=== PATIENT | female | born 1930 | race Caucasian/White ===

== ENCOUNTER 2016-09-08 15:17 | Outpatient (CLI) | payer MEDICARE, OTHER | END 2016-09-08 15:18 | disposition home or self-care (01) | DX: N18.3 Chronic kidney disease, stage 3 (moderate) (principal); I48.91 Unspecified atrial fibrillation; I12.9 Hypertensive chronic kidney disease with stage 1 through stage 4 chronic kidney disease, or unspecified chronic kidney disease ==

== ENCOUNTER 2016-09-22 13:20 | Outpatient (CLI) | payer MEDICARE, OTHER | END 2016-09-22 13:21 | disposition home or self-care (01) | DX: N39.0 Urinary tract infection, site not specified (principal) ==

== ENCOUNTER 2016-09-26 17:58 | Outpatient (CLI) | payer MEDICARE, OTHER | END 2016-09-26 17:59 | disposition critical access hospital (66) | DX: R11.2 Nausea with vomiting, unspecified (principal); R53.1 Weakness | CPT/HCPCS: A0425; A0429 ==

== ENCOUNTER 2016-09-26 18:24 | Inpatient (IN) | payer MEDICARE, OTHER ==
[2016-09-26] MEDS ORDERED: SODIUM CHLORIDE 0.9% 1,000 ML IV ONE (18:33)
[2016-09-26] MEDS ORDERED: ONDANSETRON 4 MG/2 ML VIAL ONE (18:34)
[2016-09-26] MEDS ORDERED: ONDANSETRON 4 MG/2 ML VIAL IVP STA (18:35)
[2016-09-26] MEDS ORDERED: cefTRIAXone 1 GM in SODIUM CHLORIDE 0.9% MINIBAG 100 ML IV STA (19:56)
[2016-09-26] MEDS ORDERED: METOCLOPRAMIDE 10 MG/2 ML VIAL IVP STA (19:56)
[2016-09-26] MEDS ORDERED: METOCLOPRAMIDE 10 MG/2 ML VIAL IVP ONE (20:07)
[2016-09-26] MEDS ORDERED: cefTRIAXone 1 GM VIAL ONE (20:07)
[2016-09-26] MEDS ORDERED: PROCHLORPERAZINE 10 MG/2 ML VIAL IVP PRN (20:16)
[2016-09-26] MEDS ORDERED: PROMETHAZINE 25 MG/1 ML VIAL IM PRN (20:16)
[2016-09-26] MEDS ORDERED: diphenhydrAMINE INJ 50 MG/ML VIAL IM PRN (20:19)
[2016-09-26] MEDS ORDERED: DOCUSATE SODIUM 250 MG CAPSULE PO PRN ×2 (20:20→21:54)
[2016-09-26] MEDS ORDERED: METOPROLOL TARTRATE 25 MG TABLET PO SCH (21:00)
[2016-09-26] MEDS: ACETAMINOPHEN 325 MG TABLET PO PRN (21:24)
[2016-09-26] MEDS: SODIUM CHLORIDE FLUSH 0.9% 10 ML SYRINGE IVP SCH (21:27)
[2016-09-26] MEDS: SODIUM CHLORIDE 0.9% 1,000 ML IV SCH (21:27)
[2016-09-26] MEDS: FLUTICASONE NASAL SPRAY NAS SCH (21:27)
[2016-09-26] MEDS: FAMOTIDINE 20 MG/50 ML 50 ML IV SCH (21:27)
[2016-09-26] MEDS: ONDANSETRON 4 MG/2 ML VIAL IVP PRN (22:03)
[2016-09-26] MEDS: SODIUM CHLORIDE FLUSH 0.9% 10 ML SYRINGE IVP PRN (22:04)
[2016-09-27] MEDS: HYDROcod/ACETAM 5/325 MG TABLET PO PRN ×3 (00:39→17:27)
[2016-09-27] MEDS ORDERED: SODIUM CHLORIDE 0.9% 1,000 ML IV ONE (08:30)
[2016-09-27] MEDS: SODIUM CHLORIDE 0.9% 1,000 ML IV ONE ×3 (08:34→09:33)
[2016-09-27] MEDS: cefTRIAXone 2 GM in SODIUM CHLORIDE 0.9% MINIBAG 100 ML IV SCH (09:22)
[2016-09-27] MEDS: SACCHAROMYCES BOULARDII 250 MG CAPSULE PO SCH ×2 (09:32→17:27)
[2016-09-27] MEDS: FERROUS SULFATE 325 MG TABLET PO SCH (09:32)
[2016-09-27] MEDS: SODIUM CHLORIDE FLUSH 0.9% 10 ML SYRINGE IVP SCH ×3 (09:34→21:16)
[2016-09-27] MEDS: FLUTICASONE NASAL SPRAY NAS SCH ×2 (09:34→21:10)
[2016-09-27] MEDS: METOPROLOL TARTRATE 25 MG TABLET PO SCH ×2 (09:35→21:16)
[2016-09-27] MEDS: POLYETHYLENE GLYCOL 3350 17 GM PACKET PO SCH (09:36)
[2016-09-27] MEDS: ASPIRIN EC 81 MG TABLET PO SCH (09:58)
[2016-09-27] MEDS ORDERED: MIN OIL/DIMETHICON/COCONUT OIL 92 GM TUBE TOP ONE (12:27)
[2016-09-27] MEDS ORDERED: MAGNESIUM SULFATE 2 GRAM 50 ML IV ONE (12:30)
[2016-09-27] MEDS: SODIUM CHLORIDE 0.9% 1,000 ML IV SCH ×3 (12:32→19:24)
[2016-09-27] MEDS ORDERED: WARFARIN 2.5 MG TABLET PO SCH (14:00)
[2016-09-27] MEDS: MORPHINE 2 MG/ML SYRINGE IVP PRN (19:28)
[2016-09-27] MEDS: FAMOTIDINE 20 MG/50 ML 50 ML IV SCH (21:11)
[2016-09-28] MEDS: HYDROcod/ACETAM 5/325 MG TABLET PO PRN ×4 (01:20→23:42)
[2016-09-28] MEDS: SODIUM CHLORIDE 0.9% 1,000 ML IV SCH ×4 (04:22→21:54)
[2016-09-28] MEDS: SODIUM CHLORIDE FLUSH 0.9% 10 ML SYRINGE IVP SCH ×3 (06:56→21:05)
[2016-09-28] MEDS: METOPROLOL TARTRATE 25 MG TABLET PO SCH ×2 (08:50→21:04)
[2016-09-28] MEDS: PANTOPRAZOLE 40 MG TABLET PO SCH (08:50)
[2016-09-28] MEDS: SACCHAROMYCES BOULARDII 250 MG CAPSULE PO SCH ×2 (08:50→17:03)
[2016-09-28] MEDS: POLYETHYLENE GLYCOL 3350 17 GM PACKET PO SCH (08:51)
[2016-09-28] MEDS: cefTRIAXone 2 GM in SODIUM CHLORIDE 0.9% MINIBAG 100 ML IV SCH (08:51)
[2016-09-28] MEDS: FERROUS SULFATE 325 MG TABLET PO SCH (08:58)
[2016-09-28] MEDS: ASPIRIN EC 81 MG TABLET PO SCH (08:58)
[2016-09-28] MEDS: FLUTICASONE NASAL SPRAY NAS SCH ×2 (08:58→21:09)
[2016-09-28] MEDS: METOPROLOL 5 MG/5 ML VIAL IVP SCH ×2 (09:09→15:16)
[2016-09-28] MEDS ORDERED: DIGOXIN 500 MCG/2 ML AMP IVP ONE ×2 (10:00→10:15)
[2016-09-28] MEDS ORDERED: WARFARIN 2.5 MG TABLET PO SCH (17:00)
[2016-09-29] MEDS: MORPHINE 2 MG/ML SYRINGE IVP PRN (02:10)
[2016-09-29] MEDS: PANTOPRAZOLE 40 MG TABLET PO SCH (06:57)
[2016-09-29] MEDS: SODIUM CHLORIDE FLUSH 0.9% 10 ML SYRINGE IVP SCH ×3 (06:58→22:09)
[2016-09-29] MEDS: cefTRIAXone 2 GM in SODIUM CHLORIDE 0.9% MINIBAG 100 ML IV SCH (09:31)
[2016-09-29] MEDS: FLUTICASONE NASAL SPRAY NAS SCH ×2 (09:38→22:01)
[2016-09-29] MEDS: METOPROLOL TARTRATE 25 MG TABLET PO SCH ×2 (09:48→22:07)
[2016-09-29] MEDS: FERROUS SULFATE 325 MG TABLET PO SCH (09:49)
[2016-09-29] MEDS: ASPIRIN EC 81 MG TABLET PO SCH (09:49)
[2016-09-29] MEDS: POLYETHYLENE GLYCOL 3350 17 GM PACKET PO SCH ×2 (09:52→16:35)
[2016-09-29] MEDS: SODIUM CHLORIDE FLUSH 0.9% 10 ML SYRINGE IVP PRN (10:10)
[2016-09-29] MEDS ORDERED: MIN OIL/DIMETHICON/COCONUT OIL 92 GM TUBE TOP PRN (11:48)
[2016-09-29] MEDS: SACCHAROMYCES BOULARDII 250 MG CAPSULE PO SCH ×2 (12:08→16:19)
[2016-09-29] MEDS ORDERED: WARFARIN 5 MG TABLET PO SCH (14:00)
[2016-09-29] MEDS: HYDROcod/ACETAM 5/325 MG TABLET PO PRN ×2 (14:18→19:17)
[2016-09-29] MEDS ORDERED: VANCOMYCIN INJ 1 GM in SODIUM CHLORIDE 0.9% 250 ML IV SCH ×2 (16:00→17:00)
[2016-09-29] MEDS ORDERED: PETROLATUM TOP PRN (16:00)
[2016-09-29] MEDS ORDERED: ZINC OXIDE TOP PRN (16:00)
[2016-09-29] MEDS: WARFARIN 5 MG TABLET PO SCH (16:15)
[2016-09-29] MEDS ORDERED: VANCOMYCIN PER PHARMACY 1,000 GM in SODIUM CHLORIDE 0.9% 250 ML IV SCH (17:00)
[2016-09-29] MEDS: AMPICILLIN/SULBACTAM 3 GM in SODIUM CHLORIDE 0.9% MINIBAG 100 ML IV SCH (22:01)
[2016-09-30] MEDS: AMPICILLIN/SULBACTAM 3 GM in SODIUM CHLORIDE 0.9% MINIBAG 100 ML IV SCH ×3 (02:29→13:39)
[2016-09-30] MEDS: SODIUM CHLORIDE FLUSH 0.9% 10 ML SYRINGE IVP PRN (02:29)
[2016-09-30] MEDS: HYDROcod/ACETAM 5/325 MG TABLET PO PRN ×2 (05:45→13:45)
[2016-09-30] MEDS: SODIUM CHLORIDE FLUSH 0.9% 10 ML SYRINGE IVP SCH ×4 (06:47→13:45)
[2016-09-30] MEDS: PANTOPRAZOLE 40 MG TABLET PO SCH (06:47)
[2016-09-30] MEDS: ACETAMINOPHEN 325 MG TABLET PO PRN (06:56)
[2016-09-30] MEDS: SACCHAROMYCES BOULARDII 250 MG CAPSULE PO SCH (08:45)
[2016-09-30] MEDS ORDERED: DOCUSATE SODIUM 250 MG CAPSULE PO SCH (09:00)
[2016-09-30] MEDS ORDERED: SENNA 8.6 MG TABLET PO SCH (09:00)
[2016-09-30] MEDS: FERROUS SULFATE 325 MG TABLET PO SCH (09:07)
[2016-09-30] MEDS: ASPIRIN EC 81 MG TABLET PO SCH (09:09)
[2016-09-30] MEDS: METOPROLOL TARTRATE 25 MG TABLET PO SCH (09:09)
[2016-09-30] MEDS: POLYETHYLENE GLYCOL 3350 17 GM PACKET PO SCH (09:18)
[2016-09-30] MEDS: FLUTICASONE NASAL SPRAY NAS SCH (09:33)
[2016-09-30] MEDS: ONDANSETRON 4 MG/2 ML VIAL IVP PRN (12:47)
[2016-09-30] MEDS: WARFARIN 5 MG TABLET PO SCH (13:39)
== END 2016-09-30 15:32 | disposition home or self-care (01) | DRG 698 ==
DX: T83.518A Infection and inflammatory reaction due to other urinary catheter, initial encounter (principal); A41.9 Sepsis, unspecified organism; N17.9 Acute kidney failure, unspecified; T36.95XA Adverse effect of unspecified systemic antibiotic, initial encounter; Y92.238 Other place in hospital as the place of occurrence of the external cause; I69.954 Hemiplegia and hemiparesis following unspecified cerebrovascular disease affecting left non-dominant side; N18.9 Chronic kidney disease, unspecified; R11.2 Nausea with vomiting, unspecified; I48.2 Chronic atrial fibrillation; N13.70 Vesicoureteral-reflux, unspecified; K21.9 Gastro-esophageal reflux disease without esophagitis; H35.30 Unspecified macular degeneration; R74.0 Nonspecific elevation of levels of transaminase and lactic acid dehydrogenase [LDH]; I13.10 Hypertensive heart and chronic kidney disease without heart failure, with stage 1 through stage 4 chronic kidney disease, or unspecified chronic kidney disease; H91.90 Unspecified hearing loss, unspecified ear; N18.3 Chronic kidney disease, stage 3 (moderate); Z95.5 Presence of coronary angioplasty implant and graft; I25.10 Atherosclerotic heart disease of native coronary artery without angina pectoris; Z86.73 Personal history of transient ischemic attack (TIA), and cerebral infarction without residual deficits; Z86.718 Personal history of other venous thrombosis and embolism; Z86.711 Personal history of pulmonary embolism; Z79.01 Long term (current) use of anticoagulants; Z87.440 Personal history of urinary (tract) infections; I69.998 Other sequelae following unspecified cerebrovascular disease; M21.372 Foot drop, left foot; Z96.649 Presence of unspecified artificial hip joint; J45.909 Unspecified asthma, uncomplicated; D50.9 Iron deficiency anemia, unspecified; G89.29 Other chronic pain; M19.90 Unspecified osteoarthritis, unspecified site; M54.9 Dorsalgia, unspecified; T37.8X5A Adverse effect of other specified systemic anti-infectives and antiparasitics, initial encounter; Y92.531 Health care provider office as the place of occurrence of the external cause; Z22.322 Carrier or suspected carrier of Methicillin resistant Staphylococcus aureus; Z79.82 Long term (current) use of aspirin; Z79.899 Other long term (current) drug therapy

== ENCOUNTER 2016-10-18 08:00 | Outpatient (CLI) | payer MEDICARE, OTHER | END 2016-10-18 08:01 | disposition home or self-care (01) | DX: N39.0 Urinary tract infection, site not specified (principal) ==

== ENCOUNTER 2016-10-31 11:00 | Outpatient (CLI) | payer MEDICARE, OTHER | END 2016-10-31 11:01 | disposition home or self-care (01) | DX: N39.0 Urinary tract infection, site not specified (principal) ==

== ENCOUNTER 2016-11-02 14:24 | Outpatient (CLI) | payer MEDICARE, OTHER | END 2016-11-02 23:59 | disposition critical access hospital (66) | DX: R53.1 Weakness (principal); R11.2 Nausea with vomiting, unspecified; R68.83 Chills (without fever); R19.7 Diarrhea, unspecified | CPT/HCPCS: A0425; A0427 ==

== ENCOUNTER 2016-11-02 14:49 | Inpatient (IN) | payer MEDICARE, OTHER ==
[2016-11-02] MEDS ORDERED: SODIUM CHLORIDE 0.9% 500 ML IV ONE (15:15)
[2016-11-02] MEDS ORDERED: ONDANSETRON 4 MG/2 ML VIAL IVP STA (15:52)
[2016-11-02] MEDS ORDERED: ONDANSETRON 4 MG/2 ML VIAL ONE (16:01)
[2016-11-02] MEDS ORDERED: cefTRIAXone 1 GM in SODIUM CHLORIDE 0.9% MINIBAG 100 ML IV STA (16:36)
[2016-11-02] MEDS ORDERED: cefTRIAXone 1 GM VIAL ONE (16:41)
[2016-11-02] MEDS ORDERED: SODIUM CHLORIDE FLUSH 0.9% 10 ML SYRINGE IVP PRN (18:01)
[2016-11-02] MEDS ORDERED: VANCOMYCIN PER PHARMACY 1,000 GM in SODIUM CHLORIDE 0.9% 250 ML IV SCH (19:00)
[2016-11-02] MEDS ORDERED: VANCOMYCIN INJ 1 GM in SODIUM CHLORIDE 0.9% 250 ML IV SCH (19:00)
[2016-11-02] MEDS: SODIUM CHLORIDE FLUSH 0.9% 10 ML SYRINGE IVP SCH (19:59)
[2016-11-02] MEDS: SODIUM CHLORIDE 0.9% 1,000 ML IV SCH (19:59)
[2016-11-02] MEDS: CHOLESTYRAMINE 4 GM PACKET PO SCH (21:49)
[2016-11-02] MEDS ORDERED: WARFARIN 2.5 MG TABLET PO SCH (23:45)
[2016-11-03] MEDS: ACETAMINOPHEN 325 MG TABLET PO PRN ×3 (01:26→13:11)
[2016-11-03] MEDS ORDERED: MICONAZOLE NITRATE TOP PRN (02:28)
[2016-11-03] MEDS ORDERED: MIN OIL/DIMETHICON/COCONUT OIL 92 GM TUBE TOP ONE (02:48)
[2016-11-03] MEDS: ZINC OXIDE 20% OINT 28.35 GM TUBE TOP PRN (03:25)
[2016-11-03] MEDS: SODIUM CHLORIDE 0.9% 1,000 ML IV SCH ×2 (06:38→20:00)
[2016-11-03] MEDS: PANTOPRAZOLE 40 MG TABLET PO SCH (06:39)
[2016-11-03] MEDS: SODIUM CHLORIDE FLUSH 0.9% 10 ML SYRINGE IVP SCH ×3 (06:57→20:00)
[2016-11-03] MEDS ORDERED: POLYETHYLENE GLYCOL 3350 17 GM PACKET PO SCH (09:00)
[2016-11-03] MEDS ORDERED: MICONAZOLE NITRATE TOP SCH (09:00)
[2016-11-03] MEDS ORDERED: ENOXAPARIN 30 MG/0.3 ML SYRINGE SUBQ SCH (09:00)
[2016-11-03] MEDS ORDERED: LACTULOSE 10 GM /15 ML UDC PO SCH (09:00)
[2016-11-03] MEDS ORDERED: ZINC OXIDE 20% OINT 28.35 GM TUBE TOP SCH (09:00)
[2016-11-03] MEDS: LOSARTAN 50 MG TABLET PO SCH (09:07)
[2016-11-03] MEDS: CHOLESTYRAMINE 4 GM PACKET PO SCH ×2 (09:07→22:27)
[2016-11-03] MEDS: FLUCONAZOLE 100 MG TABLET PO SCH (12:15)
[2016-11-03] MEDS: WARFARIN 5 MG TABLET PO SCH (12:15)
[2016-11-03] MEDS: IMIPENEM/CILASTATIN 250 MG in SODIUM CHLORIDE 0.9% MINIBAG 100 ML IV SCH ×3 (12:15→22:34)
[2016-11-03] MEDS ORDERED: cefTRIAXone 1 GM in SODIUM CHLORIDE 0.9% MINIBAG 100 ML IV SCH (15:00)
[2016-11-03] MEDS ORDERED: VANCOMYCIN INJ 0.75 GM in SODIUM CHLORIDE 0.9% 250 ML IV SCH (17:00)
[2016-11-03] MEDS: SACCHAROMYCES BOULARDII 250 MG CAPSULE PO SCH (17:24)
[2016-11-03] MEDS: HYDROcod/ACETAM 5/325 MG TABLET PO PRN (17:24)
[2016-11-03] MEDS: MIN OIL/DIMETHICON/COCONUT OIL 92 GM TUBE TOP PRN (19:59)
[2016-11-04] MEDS: HYDROcod/ACETAM 5/325 MG TABLET PO PRN ×6 (00:17→22:48)
[2016-11-04] MEDS: IMIPENEM/CILASTATIN 250 MG in SODIUM CHLORIDE 0.9% MINIBAG 100 ML IV SCH ×4 (00:24→17:28)
[2016-11-04] MEDS: ACETAMINOPHEN 325 MG TABLET PO PRN (02:50)
[2016-11-04] MEDS: METOPROLOL SUCCINATE 25 MG TABLET PO SCH ×2 (04:10→21:28)
[2016-11-04] MEDS: ONDANSETRON 4 MG/2 ML VIAL IVP PRN (04:10)
[2016-11-04] MEDS ORDERED: HYDROcod/ACETAM 5/325 MG TABLET PO PRN (04:21)
[2016-11-04] MEDS ORDERED: HYDROmorphone 1 MG/ML SYRINGE IVP PRN ×2 (04:26→04:53)
[2016-11-04] MEDS ORDERED: MORPHINE 2 MG/ML SYRINGE IVP PRN ×2 (04:30→04:52)
[2016-11-04] MEDS: SODIUM CHLORIDE 0.9% 1,000 ML IV SCH ×3 (05:19→23:28)
[2016-11-04] MEDS: PANTOPRAZOLE 40 MG TABLET PO SCH (06:22)
[2016-11-04] MEDS: SODIUM CHLORIDE FLUSH 0.9% 10 ML SYRINGE IVP SCH ×3 (07:11→21:29)
[2016-11-04] MEDS: FLUCONAZOLE 100 MG TABLET PO SCH (09:13)
[2016-11-04] MEDS: FERROUS SULFATE 325 MG TABLET PO SCH (09:13)
[2016-11-04] MEDS: CHOLESTYRAMINE 4 GM PACKET PO SCH ×2 (09:13→21:16)
[2016-11-04] MEDS: ASPIRIN EC 81 MG TABLET PO SCH (09:13)
[2016-11-04] MEDS: SACCHAROMYCES BOULARDII 250 MG CAPSULE PO SCH ×2 (09:13→17:28)
[2016-11-04] MEDS: LOSARTAN 50 MG TABLET PO SCH (09:18)
[2016-11-04] MEDS: WARFARIN 5 MG TABLET PO SCH (13:42)
[2016-11-04] MEDS ORDERED: methylPREDNISolone SUCCINATE 125 MG/2 ML VIAL IVP SCH (14:45)
[2016-11-04] MEDS: MIN OIL/DIMETHICON/COCONUT OIL 92 GM TUBE TOP PRN (17:31)
[2016-11-04] MEDS ORDERED: methylPREDNISolone SUCCINATE 125 MG/2 ML VIAL IVP ONE (18:43)
[2016-11-05] MEDS: IMIPENEM/CILASTATIN 250 MG in SODIUM CHLORIDE 0.9% MINIBAG 100 ML IV SCH ×4 (00:02→17:52)
[2016-11-05] MEDS: HYDROcod/ACETAM 5/325 MG TABLET PO PRN ×4 (04:56→17:51)
[2016-11-05] MEDS: PANTOPRAZOLE 40 MG TABLET PO SCH (06:11)
[2016-11-05] MEDS: SODIUM CHLORIDE FLUSH 0.9% 10 ML SYRINGE IVP SCH ×3 (07:19→23:43)
[2016-11-05] MEDS: FERROUS SULFATE 325 MG TABLET PO SCH (08:45)
[2016-11-05] MEDS: CHOLESTYRAMINE 4 GM PACKET PO SCH ×2 (08:45→21:18)
[2016-11-05] MEDS: ASPIRIN EC 81 MG TABLET PO SCH (08:45)
[2016-11-05] MEDS: SACCHAROMYCES BOULARDII 250 MG CAPSULE PO SCH ×2 (08:45→17:04)
[2016-11-05] MEDS: METOPROLOL SUCCINATE 25 MG TABLET PO SCH ×2 (08:46→21:18)
[2016-11-05] MEDS: FLUCONAZOLE 100 MG TABLET PO SCH (08:46)
[2016-11-05] MEDS: SODIUM CHLORIDE 0.9% 1,000 ML IV SCH ×2 (08:48→19:46)
[2016-11-05] MEDS: LOSARTAN 50 MG TABLET PO SCH (08:48)
[2016-11-05] MEDS: methylPREDNISolone SUCCINATE 40 MG/ML VIAL IVP SCH ×2 (13:56→23:43)
[2016-11-05] MEDS: MIN OIL/DIMETHICON/COCONUT OIL 92 GM TUBE TOP PRN (13:56)
[2016-11-05] MEDS: ZINC OXIDE 20% OINT 28.35 GM TUBE TOP PRN (21:44)
[2016-11-06] MEDS: IMIPENEM/CILASTATIN 250 MG in SODIUM CHLORIDE 0.9% MINIBAG 100 ML IV SCH ×4 (00:41→17:46)
[2016-11-06] MEDS: HYDROcod/ACETAM 5/325 MG TABLET PO PRN ×5 (00:56→22:04)
[2016-11-06] MEDS: SODIUM CHLORIDE 0.9% 1,000 ML IV SCH ×2 (06:00→08:48)
[2016-11-06] MEDS: SODIUM CHLORIDE FLUSH 0.9% 10 ML SYRINGE IVP SCH ×3 (06:05→21:52)
[2016-11-06] MEDS: methylPREDNISolone SUCCINATE 40 MG/ML VIAL IVP SCH ×3 (06:06→21:52)
[2016-11-06] MEDS: PANTOPRAZOLE 40 MG TABLET PO SCH (06:06)
[2016-11-06] MEDS: SACCHAROMYCES BOULARDII 250 MG CAPSULE PO SCH ×2 (08:48→17:38)
[2016-11-06] MEDS: LOSARTAN 50 MG TABLET PO SCH (08:48)
[2016-11-06] MEDS: CHOLESTYRAMINE 4 GM PACKET PO SCH ×2 (08:48→21:52)
[2016-11-06] MEDS: FERROUS SULFATE 325 MG TABLET PO SCH (08:48)
[2016-11-06] MEDS: ASPIRIN EC 81 MG TABLET PO SCH (08:48)
[2016-11-06] MEDS ORDERED: MUPIROCIN 2% OINT 1 GM NAS SCH (09:00)
[2016-11-06] MEDS ORDERED: METHENAMINE MANDELATE 500 MG PO SCH (09:00)
[2016-11-06] MEDS ORDERED: MUPIROCIN 2% OINT 22 GM TUBE TOP SCH (10:00)
[2016-11-06] MEDS: MUPIROCIN 2% OINT 22 GM TUBE TOP SCH ×2 (10:16→21:52)
[2016-11-06] MEDS: MUPIROCIN 2% OINT 1 GM NAS SCH ×2 (10:17→21:52)
[2016-11-07] MEDS: IMIPENEM/CILASTATIN 250 MG in SODIUM CHLORIDE 0.9% MINIBAG 100 ML IV SCH ×3 (00:03→12:35)
[2016-11-07] MEDS: HYDROcod/ACETAM 5/325 MG TABLET PO PRN ×4 (01:46→21:55)
[2016-11-07] MEDS: SODIUM CHLORIDE 0.9% 1,000 ML IV SCH ×2 (03:19→23:51)
[2016-11-07] MEDS: PANTOPRAZOLE 40 MG TABLET PO SCH (06:04)
[2016-11-07] MEDS: SODIUM CHLORIDE FLUSH 0.9% 10 ML SYRINGE IVP SCH ×3 (06:05→21:52)
[2016-11-07] MEDS: CHOLESTYRAMINE 4 GM PACKET PO SCH ×2 (09:17→21:55)
[2016-11-07] MEDS: FERROUS SULFATE 325 MG TABLET PO SCH (09:17)
[2016-11-07] MEDS: ASPIRIN EC 81 MG TABLET PO SCH (09:17)
[2016-11-07] MEDS: SACCHAROMYCES BOULARDII 250 MG CAPSULE PO SCH ×2 (09:17→17:10)
[2016-11-07] MEDS: MUPIROCIN 2% OINT 22 GM TUBE TOP SCH ×2 (09:18→21:53)
[2016-11-07] MEDS: methylPREDNISolone SUCCINATE 40 MG/ML VIAL IVP SCH ×2 (09:18→21:51)
[2016-11-07] MEDS: LOSARTAN 50 MG TABLET PO SCH (09:20)
[2016-11-07] MEDS: MUPIROCIN 2% OINT 1 GM NAS SCH ×2 (09:31→21:56)
[2016-11-07] MEDS: NITROFURANTOIN MACRO 100 MG CAPSULE PO SCH ×2 (14:29→21:51)
[2016-11-08] MEDS: SODIUM CHLORIDE FLUSH 0.9% 10 ML SYRINGE IVP SCH ×3 (05:45→22:13)
[2016-11-08] MEDS: PANTOPRAZOLE 40 MG TABLET PO SCH (07:01)
[2016-11-08] MEDS: HYDROcod/ACETAM 5/325 MG TABLET PO PRN ×4 (07:01→22:14)
[2016-11-08] MEDS: NITROFURANTOIN MACRO 100 MG CAPSULE PO SCH ×2 (08:01→22:14)
[2016-11-08] MEDS: SACCHAROMYCES BOULARDII 250 MG CAPSULE PO SCH ×2 (08:01→17:58)
[2016-11-08] MEDS: CHOLESTYRAMINE 4 GM PACKET PO SCH ×2 (08:01→22:11)
[2016-11-08] MEDS: LOSARTAN 50 MG TABLET PO SCH (08:02)
[2016-11-08] MEDS: MUPIROCIN 2% OINT 1 GM NAS SCH ×2 (08:02→22:13)
[2016-11-08] MEDS: FERROUS SULFATE 325 MG TABLET PO SCH (08:02)
[2016-11-08] MEDS: methylPREDNISolone SUCCINATE 40 MG/ML VIAL IVP SCH ×2 (08:02→22:13)
[2016-11-08] MEDS: ASPIRIN EC 81 MG TABLET PO SCH (08:02)
[2016-11-08] MEDS: MUPIROCIN 2% OINT 22 GM TUBE TOP SCH ×2 (08:03→22:13)
[2016-11-08] MEDS: METOPROLOL SUCCINATE 25 MG TABLET PO SCH ×2 (10:28→17:59)
[2016-11-08] MEDS: SODIUM CHLORIDE 0.9% 1,000 ML IV SCH (19:34)
[2016-11-09] MEDS: HYDROcod/ACETAM 5/325 MG TABLET PO PRN ×5 (02:45→20:10)
[2016-11-09] MEDS: PANTOPRAZOLE 40 MG TABLET PO SCH (06:05)
[2016-11-09] MEDS: SODIUM CHLORIDE FLUSH 0.9% 10 ML SYRINGE IVP SCH ×3 (06:06→21:28)
[2016-11-09] MEDS: LOSARTAN 50 MG TABLET PO SCH (06:20)
[2016-11-09] MEDS: ASPIRIN EC 81 MG TABLET PO SCH (08:28)
[2016-11-09] MEDS: SACCHAROMYCES BOULARDII 250 MG CAPSULE PO SCH ×2 (08:28→17:24)
[2016-11-09] MEDS: methylPREDNISolone SUCCINATE 40 MG/ML VIAL IVP SCH (08:28)
[2016-11-09] MEDS: FERROUS SULFATE 325 MG TABLET PO SCH (08:28)
[2016-11-09] MEDS: METOPROLOL SUCCINATE 25 MG TABLET PO SCH ×2 (08:29→21:28)
[2016-11-09] MEDS: NITROFURANTOIN MACRO 100 MG CAPSULE PO SCH ×2 (08:30→21:28)
[2016-11-09] MEDS: MUPIROCIN 2% OINT 1 GM NAS SCH ×2 (08:30→21:28)
[2016-11-09] MEDS: CHOLESTYRAMINE 4 GM PACKET PO SCH ×2 (08:30→21:28)
[2016-11-09] MEDS: MUPIROCIN 2% OINT 22 GM TUBE TOP SCH ×2 (08:31→21:28)
[2016-11-09] MEDS ORDERED: SODIUM CHLORIDE 0.9% 500 ML IV ONE (14:33)
[2016-11-09] MEDS: ONDANSETRON 4 MG/2 ML VIAL IVP PRN (16:58)
[2016-11-09] MEDS ORDERED: PHYTONADIONE 10 MG/ML AMP SUBQ ONE (17:00)
[2016-11-09] MEDS ORDERED: MORPHINE 2 MG/ML SYRINGE IVP PRN (17:07)
[2016-11-09] MEDS: LORazepam 2 MG/ML SYRINGE IVP PRN (20:19)
[2016-11-10] MEDS: SODIUM CHLORIDE 0.9% 1,000 ML IV SCH ×2 (02:37→16:44)
[2016-11-10] MEDS: SODIUM CHLORIDE FLUSH 0.9% 10 ML SYRINGE IVP SCH ×3 (06:00→20:22)
[2016-11-10] MEDS: SACCHAROMYCES BOULARDII 250 MG CAPSULE PO SCH ×2 (10:10→16:47)
[2016-11-10] MEDS: FERROUS SULFATE 325 MG TABLET PO SCH (10:10)
[2016-11-10] MEDS: CHOLESTYRAMINE 4 GM PACKET PO SCH ×2 (10:11→20:21)
[2016-11-10] MEDS: NITROFURANTOIN MACRO 100 MG CAPSULE PO SCH ×2 (10:12→20:22)
[2016-11-10] MEDS: MUPIROCIN 2% OINT 1 GM NAS SCH ×2 (12:18→20:21)
[2016-11-10] MEDS: MUPIROCIN 2% OINT 22 GM TUBE TOP SCH ×2 (12:20→20:21)
[2016-11-10] MEDS: HYDROcod/ACETAM 5/325 MG TABLET PO PRN ×3 (13:28→20:23)
[2016-11-11] MEDS: HYDROcod/ACETAM 5/325 MG TABLET PO PRN ×5 (01:15→22:08)
[2016-11-11] MEDS: SODIUM CHLORIDE FLUSH 0.9% 10 ML SYRINGE IVP SCH ×3 (06:25→22:09)
[2016-11-11] MEDS: FERROUS SULFATE 325 MG TABLET PO SCH (08:33)
[2016-11-11] MEDS: SACCHAROMYCES BOULARDII 250 MG CAPSULE PO SCH ×2 (08:33→18:03)
[2016-11-11] MEDS: CHOLESTYRAMINE 4 GM PACKET PO SCH ×2 (08:34→22:09)
[2016-11-11] MEDS: NITROFURANTOIN MACRO 100 MG CAPSULE PO SCH ×2 (08:34→22:10)
[2016-11-11] MEDS: MUPIROCIN 2% OINT 1 GM NAS SCH ×2 (10:00→22:10)
[2016-11-11] MEDS: MUPIROCIN 2% OINT 22 GM TUBE TOP SCH ×2 (10:00→22:10)
[2016-11-11] MEDS: SODIUM CHLORIDE 0.9% 1,000 ML IV SCH (10:45)
[2016-11-11] MEDS: LORazepam 2 MG/ML SYRINGE IVP PRN ×2 (18:14→22:09)
[2016-11-12] MEDS: SODIUM CHLORIDE FLUSH 0.9% 10 ML SYRINGE IVP SCH ×2 (06:55→13:38)
[2016-11-12] MEDS: SODIUM CHLORIDE 0.9% 1,000 ML IV SCH (06:55)
[2016-11-12] MEDS: HYDROcod/ACETAM 5/325 MG TABLET PO PRN ×2 (07:51→12:18)
[2016-11-12] MEDS: FERROUS SULFATE 325 MG TABLET PO SCH (09:36)
[2016-11-12] MEDS: MUPIROCIN 2% OINT 22 GM TUBE TOP SCH (09:36)
[2016-11-12] MEDS: MUPIROCIN 2% OINT 1 GM NAS SCH (09:36)
[2016-11-12] MEDS: SACCHAROMYCES BOULARDII 250 MG CAPSULE PO SCH (09:36)
[2016-11-12] MEDS: CHOLESTYRAMINE 4 GM PACKET PO SCH (09:36)
[2016-11-12] MEDS: NITROFURANTOIN MACRO 100 MG CAPSULE PO SCH (09:36)
[2016-11-12] MEDS: LORazepam 2 MG/ML SYRINGE IVP PRN (13:38)
== END 2016-11-12 14:15 | DRG 698 ==
DX: T83.511A Infection and inflammatory reaction due to indwelling urethral catheter, initial encounter (principal); N28.9 Disorder of kidney and ureter, unspecified; I10 Essential (primary) hypertension; I48.91 Unspecified atrial fibrillation; J44.9 Chronic obstructive pulmonary disease, unspecified; K57.31 Diverticulosis of large intestine without perforation or abscess with bleeding; Z86.73 Personal history of transient ischemic attack (TIA), and cerebral infarction without residual deficits; B37.49 Other urogenital candidiasis; N17.9 Acute kidney failure, unspecified; L03.317 Cellulitis of buttock; I69.354 Hemiplegia and hemiparesis following cerebral infarction affecting left non-dominant side; Y84.6 Urinary catheterization as the cause of abnormal reaction of the patient, or of later complication, without mention of misadventure at the time of the procedure; N39.0 Urinary tract infection, site not specified; R19.7 Diarrhea, unspecified; B95.2 Enterococcus as the cause of diseases classified elsewhere; B95.62 Methicillin resistant Staphylococcus aureus infection as the cause of diseases classified elsewhere; E87.5 Hyperkalemia; E86.0 Dehydration; B37.2 Candidiasis of skin and nail; L89.152 Pressure ulcer of sacral region, stage 2; I12.9 Hypertensive chronic kidney disease with stage 1 through stage 4 chronic kidney disease, or unspecified chronic kidney disease; N18.3 Chronic kidney disease, stage 3 (moderate); N13.70 Vesicoureteral-reflux, unspecified; K21.9 Gastro-esophageal reflux disease without esophagitis; I25.10 Atherosclerotic heart disease of native coronary artery without angina pectoris; I48.2 Chronic atrial fibrillation; J45.909 Unspecified asthma, uncomplicated; D50.9 Iron deficiency anemia, unspecified; M54.5 Low back pain; G89.29 Other chronic pain; F32.9 Major depressive disorder, single episode, unspecified; Z66 Do not resuscitate; Z96.0 Presence of urogenital implants; Z96.642 Presence of left artificial hip joint; Z86.018 Personal history of other benign neoplasm; Z95.5 Presence of coronary angioplasty implant and graft; Z86.718 Personal history of other venous thrombosis and embolism; Z79.01 Long term (current) use of anticoagulants; Z86.14 Personal history of Methicillin resistant Staphylococcus aureus infection; Z86.711 Personal history of pulmonary embolism; Z79.891 Long term (current) use of opiate analgesic; Z79.82 Long term (current) use of aspirin

== ENCOUNTER 2016-11-12 14:26 | Outpatient (CLI) | payer MEDICARE, OTHER | END 2016-11-12 14:27 | disposition home or self-care (01) | DX: N39.0 Urinary tract infection, site not specified (principal); R53.1 Weakness | CPT/HCPCS: A0425; A0428 ==